=== PATIENT | male | born 1970 | race Caucasian/White ===

== ENCOUNTER 2017-05-15 13:07 | Inpatient (IN) | payer BC ==
--- NOTE | 2017-05-15 13:43 | RAD ---
THREE VIEWS LEFT HAND: History: Left hand injury with pain. FINDINGS: Three views of the left hand shows amputation of the tip of the middle finger. There is a fracture of the distal phalanx predominately involving the tuft. There is also soft tissue swelling of the ring finger and a fracture of the tuft of the distal phalanx of the ring finger. No radiopaque foreign bod y is seen. IMPRESSION: 1. Amputation of the distal tip of the middle finger with underlying fracture of the distal phalanx. 2. Tuft fracture of the distal phalanx of the ring finger. POS: FABIOLA
[2017-05-15] MEDS ORDERED: Morphine 4 MG/ML VIAL ONE ×2 (13:48→18:39)
[2017-05-15] MEDS ORDERED: Adacel (T-DAP) 0.5 ML VIAL ONE (13:49)
[2017-05-15] MEDS ORDERED: CEFAZOLIN 1 GM, Syringe 2.5 ML in Sterile Water 7.5 ML SLOW IVP SCH (14:00)
[2017-05-15] MEDS ORDERED: Gentamicin 80 MG/2 ML VIAL ONE (14:16)
[2017-05-15] MEDS ORDERED: Gentamicin Sulfate 80 MG in Premix Bag 1 BAG IVPB SCH (14:30)
[2017-05-15] MEDS ORDERED: Ketorolac Tromethamine 30 MG/ML VIAL ONE (14:52)
[2017-05-15] MEDS ORDERED: Dexamethasone 20 MG/5 ML VIAL ONE (14:52)
[2017-05-15] MEDS ORDERED: Lidocaine 1% PF 5 ML VIAL ONE (14:52)
[2017-05-15] MEDS ORDERED: Ondansetron HCl/PF 4 MG/2 ML Vial ONE (14:52)
[2017-05-15] MEDS ORDERED: Propofol 200 MG/20 ML VIAL ONE (14:52)
[2017-05-15 15:22] LABS: #Eosinphils 0.1 thou/uL (0.0-0.7); #Lymphocytes 2.3 thou/uL (1.20-3.40); #Monocytes 0.4 thou/uL (0.11-0.59); #Neutrophils 3.9 thou/uL (1.40-6.50); %Basophils 0.1 % (0.0-1.0); %Eosinophils 1.6 % (0.0-10.0); %Lymphocytes 33.4 % (21.0-51.0); %Monocytes 6.6 % (0.0-10.0); Hematocrit 47.2 % (42.0-52.0); Mean Platelet Volume 9.6 fL (7.4-10.4); Red Blood Cell (RBC) Count 4.94 mill/uL (4.70-6.10); White Blood Cell (WBC) Count 6.8 thou/uL (4.8-10.8)
[2017-05-15 15:29] LABS: Anion Gap 14 mmol/L (10-20); BUN (Urea Nitrogen) 16 mg/dL (8.9-20.6); Calc. Creatinine Clearance 0 mL/min (70-130); Calcium 9.6 mg/dL (7.8-10.44); Carbon Dioxide 22 mmol/L (22-29); Chloride 105 mmol/L (98-107); Estimated GFR-MDRD 76
[2017-05-15] MEDS ORDERED: Thrombin 5000 UNITS/5 ML VIAL ONE (17:04)
[2017-05-15] MEDS ORDERED: Bupivacaine PF 0.5% 30 ML VIAL ONE (17:04)
[2017-05-15] MEDS ORDERED: Bacitracin Zinc Ointment 30 gm TUBE ONE (17:04)
[2017-05-15] MEDS ORDERED: Sodium Chloride 0.9% 10 ML ONE (17:04)
[2017-05-15] MEDS ORDERED: Midazolam HCl 2 mg/2 ml Vial ONE (18:17)
[2017-05-15] MEDS ORDERED: Fentanyl 100 MCG/2 ML VIAL ONE (18:25)
[2017-05-15] MEDS ORDERED: Promethazine HCl 25 MG/ML VIAL IM PRN ×2 (20:20→22:01)
[2017-05-15] MEDS ORDERED: Ondansetron HCl/PF 4 MG/2 ML Vial IVP PRN ×3 (20:20→22:01)
[2017-05-15] MEDS ORDERED: Promethazine HCl 25 MG/ML VIAL SLOW IVP PRN ×2 (20:20→22:01)
[2017-05-15] MEDS ORDERED: Meperidine HCl/PF 25 MG/ML VIAL SLOW IVP PRN (20:20)
--- NOTE | 2017-05-15 20:52 | RAD ---
TWO VIEWS FOUR DIGIT LEFT HAND: 05/15/17 Two intraoperative images obtained. An oblique fracture in the distal phalanx fourth digit left hand has been stabilized using two transo sseous wires. IMPRESSION: Status post pinning of distal fourth digit phalangeal fracture. POS: ANDRES
[2017-05-15] MEDS ORDERED: Acetaminophen 325 MG TAB PO PRN (21:48)
[2017-05-15] MEDS ORDERED: traMADol HCl 50 MG TAB PO PRN (21:48)
[2017-05-15] MEDS ORDERED: Morphine 4 MG/ML VIAL SLOW IVP PRN (21:48)
[2017-05-15] MEDS ORDERED: HYDROcodone/Acetaminophen 7.5/325 mg Tablet PO PRN (21:48)
[2017-05-15] MEDS: Sodium Chloride 0.9% 1,000 ML IV SCH (22:49)
[2017-05-15] MEDS: Ketorolac Tromethamine 30 MG/ML VIAL IVP SCH (23:32)
[2017-05-15] MEDS: Clindamycin/D5W 900 MG in Premix Bag 1 BAG IVPB SCH (23:35)
[2017-05-16 01:22] VITALS: BMI 27.3
[2017-05-16] MEDS: Clindamycin/D5W 900 MG in Premix Bag 1 BAG IVPB SCH (06:14)
[2017-05-16] MEDS: Ketorolac Tromethamine 30 MG/ML VIAL IVP SCH ×2 (06:15→12:08)
--- NOTE | 2017-05-16 08:15 | OP ---
DATE OF SURGERY: 05/15/2017 PREOPERATIVE DIAGNOSES: Left long finger partial amputation with exposed bone to left ring finger, g rade III open fracture, distal phalanx mid portion with complex nail injury. POSTOPERATIVE DIAGNOSES: Left long finger partial amputation with exposed bone to left ring finger, grade III open fracture, distal phalanx mid portion with complex nail injury. FINDINGS: Gross contamination. Minimum blood present. Dirt particles seen on the magnification in both fingers. Three part fracture of the left ring finger distal phalanx and 2 mm of exposed bone wi thout nail bed cover over the left middle finger distal phalanx. Debridement at all wounds using the following techniques. A. Excisional. B. Instrumentation: Curette small tip, [place] blade, 11 blade, rongeur, and irrigation with a total of 2 liters normal saline and Pulsavac pressure to 2 fingers. C. Depth was down to including bone at all sites. D. Mild gross contamination seen. PROCEDURES PERFORMED: Left middle finger: A. Wound debridement. B. Bone debridement to include material associated with open fracture. C. Open treatment of fracture of the phalanx. D. Full-thickness skin graft 2.5 cm x 1 cm at the left middle finger. At the left ring finger: A. Wound debridement. B. Bone debridement of material associated with open fracture debridement. C. Open reduction and internal fixation distal phalanx fracture using 0.035 K-wires x2. D. C-arm supervision less than or equal to 1 hour. E. A 2-mm wound closure complex. G. Nail bed repair, left ring finger (removal of nail). TOURNIQUET TIME: 48 minutes. INDICATIONS: The patient with accident working with a connection to a hitch and trailer crushing the se two digits leading to the findings listed above. DESCRIPTION OF THE PROCEDURE: After successful general endotracheal anesthesia, the limb prepped and draped. Time out was done appropriately. The patient then had limb exsanguinated, tourniquet infla sailaja to 250 mmHg pressure. We protected the nail, removed the nail on the ring finger. Then, once we had done debridement of bone material associated open fracture including some small par ticles at both fingers, we finished the irrigation and using a total of 2 liters normal saline and Pu lsavac pressure with antibiotics inside. We then began with the ring finger, left side repaired first, after the laceration was fully debrided down to including bone material associated open fracture without cleaning, we closed laceration of 2 cm interrupted 5-0 nylon simple pattern. This helped realign the fracture on the nail bed and then on radiographs we noticed the fracture was but it was over 50% displaced in the sagittal plane. We performed a reduction through the nail bed defect of the fracture, held this with fingertips and then passed two 0.035 K-wires to compress and hold it in place. They did not violate the joint. We then could now see the bone was in excellent position, although not anatomic, but more than adequa te to heal without a bump or irritation formation. We then at the left ring finger completed a 2 cm wound closure, then now visualized the nail bed which had a Y shaped laceration in the junction of mi d and distal third, so we brought a 6-0 chromic onto the field and performed a repair using six diffe rent sutures individually, tied the knots x4 and cut them short, up to the level of the knot. We now completed this repair and no further contamination seen, so we turned attention to the left lo ng middle finger. On the left middle finger, we finished the wound debridement and debridement associated open fracture using the techniques listed above "debridement." Then, we noticed that the bone which was approxima tely 2 mm once the nail bed had been visualized and debrided back to healthy tissue, so we then use a rongeur a combination of bone cutter to make the bone showed about 2 mm. This also allowed to have less tension on the palmar flap, which was viable once the tourniquet was inflated which we did now. We then obtained hemostasis at the previously operated on ring finger, and at the middle finger, adama ch were working on now, then once the bone was approximated 0.5 mm flush short of protruding fr om underneath the nail bed, we then brought a layer of fat up over the edge of the bone and the nail bed held that with 5-0 Chromic suture and then this was followed by harvesting a full-thickness skin graft from the antecubital fossa tendon as much as possible, closing the donor defect with interrupte d 4-0 Monocryl followed by fibrin glue and bulky dressing, sterile. We then took the defatted graft held with four bolster sutures one each corner, ran a piece around the nail bed and the skin edges wi th 4-0 chromic suture and then irrigated one more time each site. We also applied at this middle fin edilma, a full-thickness skin graft held with bolsters and with a running chromic suture placed Adaptic with bacitracin on top of this then followed that with final bolster and with a cotton ball soaked in heavy and minimal. The patient then had a bulky dressing applied with each individual finger covere d and then covering on top of each other without complication and had the digit was pink at this time . The patient left the operating room without evidence of anesthetic or operative complication and w ill be admitted for 24 to 36 hours IV antibiotics and observation.
[2017-05-16] MEDS: Sodium Chloride 0.9% 1,000 ML IV SCH (08:21)
[2017-05-16] MEDS ORDERED: Famotidine/PF 20 mg/2ml Vial SLOW IVP SCH (09:00)
[2017-05-16 13:25] VITALS: BP 117/71; TEMP 98.3
[2017-05-16] MEDS ORDERED: Clindamycin/D5W 900 MG in Premix Bag 1 BAG IVPB SCH (14:00)
== END 2017-05-16 14:30 | disposition home or self-care (01) | DRG 906 ==
LOC: ERS 13:07 → SURG A 15:59 → SDC 16:14 → SURG A 22:30
PROVIDERS: ADMIT Orthopaedic Surgery Hand Surgery; ATTEND Orthopaedic Surgery Hand Surgery
PROC: 0PSV04Z Reposition Left Finger Phalanx with Internal Fixation Device, Open Approach (ICD-10-PCS; principal; 2017-05-15)
PROC: 0PBV0ZZ Excision of Left Finger Phalanx, Open Approach (ICD-10-PCS; 2017-05-15)
PROC: 0HQQXZZ Repair Finger Nail, External Approach (ICD-10-PCS; 2017-05-15)
PROC: 0HDQXZZ Extraction of Finger Nail, External Approach (ICD-10-PCS; 2017-05-15)
PROC: 0HRGX73 Replacement of Left Hand Skin with Autologous Tissue Substitute, Full Thickness, External Approach (ICD-10-PCS; 2017-05-15)
DX: S68.123A Partial traumatic metacarpophalangeal amputation of left middle finger, initial encounter (principal); S62.635B Displaced fracture of distal phalanx of left ring finger, initial encounter for open fracture; X58.XXXA Exposure to other specified factors, initial encounter
CPT/HCPCS: 76000; 80048; 85025; 90471; 90715; 96365; 96375; A4216; G8987-GO-CI; G8988-GO-CI; G8989-GO-CI; J0690; J1100; J1580; J1885; J2001; J2250; J2270; J2405; J2704; J3010; J3490; S0020; S0028